=== PATIENT | female | born 1955 | race Caucasian/White ===

== ENCOUNTER 2022-01-13 18:29 | Emergency (ER) | payer OTHER ==
[~2022-01-13] VITALS: Ht 160 cm; Wt 61.0 kg
[2022-01-13] MEDS ORDERED: ACET-2708 MT (18:56)
[2022-01-13] MEDS ORDERED: IBUP-2029 MT (18:56)
[2022-01-13] MEDS ORDERED: ACETAMINOPHEN 500MG TABLET PO NR (19:00)
[2022-01-13] MEDS ORDERED: IBUPROFEN 600MG TABLET PO NR (19:00)
[2022-01-13] MEDS ORDERED: IBUPROFEN 600MG TABLET PO ONE (19:00)
[2022-01-13] MEDS ORDERED: ACETAMINOPHEN 325MG TABLET PO ONE (19:00)
[2022-01-13 20:30] VITALS: BP 110/78
== END 2022-01-13 20:30 | disposition home or self-care (01) ==
LOC: ER 18:29
DX: S40.011A Contusion of right shoulder, initial encounter (principal); S16.1XXA Strain of muscle, fascia and tendon at neck level, initial encounter; E11.9 Type 2 diabetes mellitus without complications; E78.00 Pure hypercholesterolemia, unspecified; I10 Essential (primary) hypertension; V43.52XA Car driver injured in collision with other type car in traffic accident, initial encounter; Y93.89 Activity, other specified; Y92.410 Unspecified street and highway as the place of occurrence of the external cause
CPT/HCPCS: 73030; 99283